=== PATIENT | male | born 1980 | race Two or more races ===

== ENCOUNTER 2021-04-11 09:06 | Outpatient (CLI) | payer OTHER | END 2021-04-11 09:14 | disposition home or self-care (01) | LOC: LAB 09:06 | PROVIDERS: ATTEND Internal Medicine Hematology & Oncology | DX: D50.8 Other iron deficiency anemias (principal); R79.89 Other specified abnormal findings of blood chemistry; I10 Essential (primary) hypertension; R74.02 Elevation of levels of lactic acid dehydrogenase [LDH]; K76.89 Other specified diseases of liver; D68.59 Other primary thrombophilia; D68.61 Antiphospholipid syndrome; D68.51 Activated protein C resistance; Z86.73 Personal history of transient ischemic attack (TIA), and cerebral infarction without residual deficits; G45.8 Other transient cerebral ischemic attacks and related syndromes ==